=== PATIENT | female | born 1945 | race Caucasian/White ===

== ENCOUNTER 2020-05-05 10:39 | Inpatient (IN) ==
[~2020-05-05 10:39] MED LIST: Dexamethasone IV 20 MG in Premix IV 0 ML IVPB SCH; NS 0.9% IVPB SCH; PEMETREXED IVPB SCH
[2020-05-05 11:38] LABS: ABS Lymphocytes 0.1 10^3/ul (1.0-4.8); ABS Monocytes 0.4 10^3/ul (0-0.8); Eosinophil % 0.5 %; Hematocrit 28 % (35-47); Hemoglobin 9.8 g/dL (12.0-16.0); Lymphocyte % 3.8 %; Mean Corpuscular HGB Conc 35 g/dL (31-36); Mean Corpuscular Hemoglobin 36 pg (27-31); Mean Corpuscular Volume 101 fL (80-97); Mean Platelet Volume 7.1 fL (7.4-10.4); Nucleated Red Blood Cells % 0.2; Platelet Count 156 10^3/uL (150-450); Red Blood Count 2.75 10^6 /uL (3.70-4.87); Red Cell Distribution Width 19 % (10-15); White Blood Count 3.6 10^3/uL (3.5-10.8)
[2020-05-05 12:17] LABS: Albumin 3.8 g/dL (3.2-5.2); Albumin/Globulin Ratio 1.5 (1-3); BUN/Creatinine Ratio 19.5 (8-20); Calcium 8.5 mg/dL (8.6-10.3); EGFR African American 76.8 (>60); EGFR Non-African American 63.5 (>60); Globulin 2.5 g/dL (2-4); Magnesium 2.5 mg/dL (1.9-2.7); Total Bilirubin 0.9 mg/dL (0.2-1.0); Total Protein 6.3 g/dL (6.4-8.9)
[2020-05-05] MEDS ORDERED: Triamcinolone 0.5% OINT 1 TUBE TOPICAL PRN (12:17)
[2020-05-05] MEDS ORDERED: TRIAMCINOLONE ACETONIDE 0.1% EX PRN (12:17)
[2020-05-05] MEDS ORDERED: Prochlorperazine 5 mg/ml 2 ml VIAL (10 mg) IV PRN (12:25)
[2020-05-05] MEDS ORDERED: fentaNYL 100 mcg/2 ml 50 MCG/ML VIAL ONE (16:52)
[2020-05-05] MEDS ORDERED: Midazolam 10 mg/10 ml VIAL 1 mg/ml 10 ml VIAL (10 mg) ONE (16:52)
[2020-05-05] MEDS: NS 0.9% 1000 ml BAG 1,000 ML IV SCH (18:37)
[2020-05-05] MEDS: Enoxaparin 40 MG/0.4 ML SYR SUBCUT SCH (18:37)
[2020-05-05] MEDS: Ondansetron 4 mg VIAL 2 MG/ML 2 ml VIAL IV PRN (20:34)
[2020-05-05] MEDS: Morphine 2 MG/ML SYRINGE IV PRN (20:34)
[2020-05-05] MEDS ORDERED: Iohexol 300 (CONTRAST) 10 ML SDV IV ONE (20:58)
[2020-05-05] MEDS: diPHENhydraMINE IV 50 MG/ML 1 ml VIAL (BENADRYL) IV SCH (23:33)
[2020-05-06] MEDS: NS 0.9% 1000 ml BAG 1,000 ML IV SCH ×2 (04:59→16:13)
[2020-05-06] MEDS: Levothyroxine 100 MCG/5 ML VIAL IV SCH (05:58)
[2020-05-06] MEDS: Morphine 2 MG/ML SYRINGE IV PRN ×2 (06:06→15:31)
[2020-05-06] MEDS: Ondansetron 4 mg VIAL 2 MG/ML 2 ml VIAL IV PRN (06:06)
[2020-05-06 06:26] LABS: ABS Lymphocytes 0.2 10^3/ul (1.0-4.8); ABS Monocytes 0.6 10^3/ul (0-0.8); ABS Neutrophils 3.2 10^3/ul (1.5-7.7); Eosinophil % 0.7 %; Hematocrit 29 % (35-47); Hemoglobin 9.9 g/dL (12.0-16.0); Lymphocyte % 4.6 %; Mean Corpuscular HGB Conc 34 g/dL (31-36); Mean Corpuscular Hemoglobin 35 pg (27-31); Mean Corpuscular Volume 103 fL (80-97); Mean Platelet Volume 7.6 fL (7.4-10.4); Platelet Count 178 10^3/uL (150-450); Red Cell Distribution Width 19 % (10-15)
[2020-05-06 07:06] LABS: Albumin 3.5 g/dL (3.2-5.2); Calcium 8.2 mg/dL (8.6-10.3); Potassium 4.4 mmol/L (3.5-5.0); Total Bilirubin 0.7 mg/dL (0.2-1.0)
[2020-05-06 07:12] LABS: Albumin/Globulin Ratio 1.7 (1-3); BUN/Creatinine Ratio 17.6 (8-20); EGFR African American 102.1 (>60); EGFR Non-African American 84.4 (>60); Globulin 2.1 g/dL (2-4); Total Protein 5.6 g/dL (6.4-8.9)
[2020-05-06] MEDS: Folic Acid 1 mg SYRINGE 0.2 ML SYRINGE IV SCH (11:39)
[2020-05-06] MEDS: Enoxaparin 40 MG/0.4 ML SYR SUBCUT SCH (15:34)
[2020-05-06] MEDS ORDERED: Lorazepam PYXIS KEY PRN (17:00)
[2020-05-06] MEDS ORDERED: LORazepam 2 mg VIAL 1 ml IV PUSH PRN (17:00)
[2020-05-06] MEDS: diPHENhydraMINE IV 50 MG/ML 1 ml VIAL (BENADRYL) IV SCH (22:23)
[2020-05-07] MEDS: NS 0.9% 1000 ml BAG 1,000 ML IV SCH ×2 (02:04→12:09)
[2020-05-07] MEDS: Levothyroxine 100 MCG/5 ML VIAL IV SCH (06:51)
[2020-05-07 08:06] LABS: Albumin 3.1 g/dL (3.2-5.2); Calcium 7.7 mg/dL (8.6-10.3); Potassium 4.2 mmol/L (3.5-5.0); Total Bilirubin 0.5 mg/dL (0.2-1.0)
[2020-05-07 08:13] LABS: Albumin/Globulin Ratio 1.7 (1-3); BUN/Creatinine Ratio 12.5 (8-20); EGFR African American 127.7 (>60); EGFR Non-African American 105.5 (>60); Globulin 1.8 g/dL (2-4); Total Protein 4.9 g/dL (6.4-8.9)
[2020-05-07] MEDS: Folic Acid 1 mg SYRINGE 0.2 ML SYRINGE IV SCH (09:55)
[2020-05-07] MEDS ORDERED: fentaNYL 100 mcg/2 ml 50 MCG/ML VIAL ONE (13:54)
[2020-05-07] MEDS ORDERED: Midazolam 10 mg/10 ml VIAL 1 mg/ml 10 ml VIAL (10 mg) ONE (13:54)
[2020-05-07] MEDS: Enoxaparin 40 MG/0.4 ML SYR SUBCUT SCH ×2 (15:58→16:51)
[2020-05-07] MEDS: diPHENhydraMINE IV 50 MG/ML 1 ml VIAL (BENADRYL) IV SCH (22:16)
[2020-05-08] MEDS: NS 0.9% 1000 ml BAG 1,000 ML IV SCH (01:15)
[2020-05-08] MEDS: Levothyroxine 100 MCG/5 ML VIAL IV SCH (05:20)
[2020-05-08 06:00] LABS: Albumin 2.9 g/dL (3.2-5.2); Albumin/Globulin Ratio 1.4 (1-3); BUN/Creatinine Ratio 12.1 (8-20); Calcium 7.8 mg/dL (8.6-10.3); EGFR African American 122.6 (>60); EGFR Non-African American 101.3 (>60); Globulin 2.1 g/dL (2-4); Potassium 4.1 mmol/L (3.5-5.0); Total Bilirubin 0.4 mg/dL (0.2-1.0)
[2020-05-08] MEDS: Folic Acid 1 mg SYRINGE 0.2 ML SYRINGE IV SCH (09:18)
[2020-05-08 11:57] VITALS: BP 189/76
== END 2020-05-08 14:23 | disposition home or self-care (01) | DRG 345 ==
LOC: CHOA 10:39 → CHOAEAST 10:39 → SSU 12:10
PROVIDERS: ADMIT Internal Medicine Hematology & Oncology; ATTEND Internal Medicine Hematology & Oncology

== ENCOUNTER 2020-07-29 14:29 | Inpatient (IN) ==
[2020-07-29 15:02] LABS: ABS Lymphocytes 0.2 10^3/ul (1.0-4.8); ABS Monocytes 0.6 10^3/ul (0-0.8); ABS Neutrophils 10.5 10^3/ul (1.5-7.7); Eosinophil % 0.2 %; Hematocrit 25 % (35-47); Hemoglobin 8.4 g/dL (12.0-16.0); Lymphocyte % 1.6 %; Mean Corpuscular HGB Conc 34 g/dL (31-36); Mean Corpuscular Hemoglobin 31 pg (27-31); Mean Corpuscular Volume 93 fL (80-97); Mean Platelet Volume 7.3 fL (7.4-10.4); Platelet Count 363 10^3/uL (150-450); Red Blood Count 2.72 10^6 /uL (3.70-4.87); Red Cell Distribution Width 18 % (10-15); White Blood Count 11.4 10^3/uL (3.5-10.8)
[2020-07-29 15:23] LABS: Albumin 3.3 g/dL (3.2-5.2); BUN/Creatinine Ratio 28.2 (8-20); Calcium 9.1 mg/dL (8.6-10.3); EGFR African American 26.9 (>60); EGFR Non-African American 22.2 (>60); Globulin 3.2 g/dL (2-4); Potassium 4.3 mmol/L (3.5-5.0); Total Bilirubin 0.8 mg/dL (0.2-1.0); Total Protein 6.5 g/dL (6.4-8.9)
[2020-07-29] MEDS ORDERED: NS 0.9% 1000 ml BAG 1,000 ML IV SCH (16:45)
[2020-07-29] MEDS ORDERED: HYDROMORPHONE PO PRN (17:36)
[2020-07-29] MEDS ORDERED: Ondansetron ODT 4 mg TAB 4 MG TAB PO PRN (17:36)
[2020-07-29] MEDS ORDERED: Ondansetron 4 mg VIAL 2 MG/ML 2 ml VIAL IV PRN (17:38)
[2020-07-29] MEDS ORDERED: fentaNYL PATCH 25 MCG/HR 1 PATCH TRANSDERM SCH (18:00)
[2020-07-29] MEDS ORDERED: Magnesium CITRATE LIQ 300 ML BTL PO ONE (18:00)
[2020-07-29] MEDS: HYDROmorphone 1 MG/1 ML SYRINGE IV SLOW PU PRN (20:42)
[2020-07-29] MEDS: Polyethylene Glycol 3350 17 GM PACKET PO SCH (22:25)
[2020-07-29] MEDS: Senna TAB 8.6 mg TAB PO SCH (22:25)
[2020-07-29] MEDS: DULoxetine DR 30 mg CAP PO SCH (22:28)
[2020-07-29] MEDS: fentaNYL Patch Check Q Shift NOTE FOLLOW UP SCH (22:38)
[2020-07-30] MEDS: HYDROmorphone 1 MG/1 ML SYRINGE IV SLOW PU PRN ×3 (03:53→14:16)
[2020-07-30 05:30] LABS: ABS Lymphocytes 0.2 10^3/ul (1.0-4.8); ABS Monocytes 0.6 10^3/ul (0-0.8); ABS Neutrophils 10.3 10^3/ul (1.5-7.7); Eosinophil % 0.1 %; Hematocrit 24 % (35-47); Lymphocyte % 1.5 %; Mean Corpuscular HGB Conc 34 g/dL (31-36); Mean Corpuscular Hemoglobin 32 pg (27-31); Mean Corpuscular Volume 92 fL (80-97); Mean Platelet Volume 7.4 fL (7.4-10.4); Platelet Count 346 10^3/uL (150-450); Red Blood Count 2.55 10^6 /uL (3.70-4.87); Red Cell Distribution Width 18 % (10-15); White Blood Count 11.1 10^3/uL (3.5-10.8)
[2020-07-30 05:55] LABS: Albumin 2.9 g/dL (3.2-5.2); BUN/Creatinine Ratio 31.2 (8-20); Calcium 8.5 mg/dL (8.6-10.3); EGFR African American 29.6 (>60); EGFR Non-African American 24.4 (>60); Potassium 4.1 mmol/L (3.5-5.0); Total Bilirubin 0.7 mg/dL (0.2-1.0); Total Protein 5.9 g/dL (6.4-8.9)
[2020-07-30] MEDS: fentaNYL Patch Check Q Shift NOTE FOLLOW UP SCH ×2 (07:32→07:36)
[2020-07-30] MEDS: Senna TAB 8.6 mg TAB PO SCH (08:43)
[2020-07-30] MEDS: Polyethylene Glycol 3350 17 GM PACKET PO SCH (08:44)
[2020-07-30] MEDS ORDERED: CMCS: LINACLOTIDE 72 MCG CAP (NF) PO SCH (09:00)
[2020-07-30 16:24] VITALS: BP 172/63
[2020-07-30] MEDS: DULoxetine DR 30 mg CAP PO SCH (16:58)
== END 2020-07-30 18:08 | disposition hospice, home (50) | DRG 389 ==
LOC: CHOA 14:29 → MEDTELE 16:38
PROVIDERS: ADMIT Internal Medicine Hematology & Oncology; ATTEND Internal Medicine Hematology & Oncology